=== PATIENT | female | born 1970 | race Caucasian/White ===

== ENCOUNTER → 2016-12-06 | Outpatient (CLI) | payer OTHER ==
[~2016-12-06] MED LIST: ASPI-390 PO; DOCU-94 PO; IRON TAB PO; NAPR1TAB9 PO; OXYC-57 PO
--- NOTE | 2016-12-06 11:53 | DIAGNOSTIC IMAGING REPORT ---
ULTRASOUND OF THE PELVIS CLINICAL HISTORY: Heavy menses. COMPARISON STUDY: No priors. TECHNIQUE: Real-time, grayscale, and color flow sonography of the pelvis is performed both transabdominally and endovaginally. Images are reviewed in the transverse and longitudinal planes. FINDINGS: Uterus: The uterus appears enlarged and heterogeneous in echotexture, measuring 14.8 x 6.8 x 6.5 cm. A hypoechoic soft tissue nodule is seen in the fundal region and distorts the individual stripe. This measures up to 2.2 cm and likely represents a submucosal fibroid. Additional small fibroids are suspected. Nabothian cysts are present in the cervix. Endometrium: The endometrium is normal in thickness measuring up to 0.7 cm. A well-circumscribed hyperechoic lesion is suggested within the endometrium paraspinal region. This measures up to 1.6 cm. No clear vascular stalk is identified. Ovaries: The ovaries are normal in size and morphology. The right ovary measures 3.1 x 1.4 x 2.0 cm and the left ovary measures 4.1 x 2.8 x 2.5 cm. Bilateral ovarian follicles are identified. Normal Doppler waveforms are shown within both ovaries. Pelvis: There is no free fluid in the cul-de-sac. No concerning adnexal lesion is seen. IMPRESSION: 1. The uterus is enlarged and heterogeneous, and likely infiltrated by numerous fibroids. 2. A 2.2 cm hypoechoic lesion distorts the endometrial stripe in the fundal region and likely represents a submucosal fibroid. 3. Question a well-circumscribed 1.6 cm echogenic lesion within the endometrium. An endometrial polyp is not excluded. 4. The ovaries are normal as visualized. Electronically signed by: Sesar Berrios M.D. 12/06/2016 11:51 AM Dictated Date/Time: 12/06/2016 11:47 AM
== END | disposition home or self-care (01) ==
LOC: C.ULTR 09:37
PROVIDERS: ATTEND Physician Assistant Medical
DX: N92.1 Excessive and frequent menstruation with irregular cycle (principal)

== ENCOUNTER → 2017-01-14 | Outpatient (CLI) | payer OTHER | END | disposition home or self-care (01) | LOC: C.PATHSPEC 15:57 | PROVIDERS: ATTEND Obstetrics & Gynecology | DX: N92.0 Excessive and frequent menstruation with regular cycle (principal); N85.8 Other specified noninflammatory disorders of uterus ==

== ENCOUNTER → 2017-01-19 | Outpatient (CLI) | payer OTHER ==
[2017-01-19 12:39] LABS: HEMATOCRIT 27.4 % (37-47); MEAN CELL VOLUME 71.9 fL (80-100); MEAN CORPUSCULAR HEMOGLOBIN 19.4 pg (25-34); MEAN PLATELET VOLUME 9.2 fL (7.4-10.4); PLATELET COUNT 373 K/uL (130-400); RED BLOOD COUNT 3.81 M/uL (4.2-5.4); WHITE BLOOD COUNT 4.44 K/uL (4.8-10.8)
[2017-01-19 12:49] LABS: BASO % 0.2 %; BASO ABS # 0.01 K/uL (0-0.2); COMPLETE YES; EOS % 3.2 %; GIANT PLATELETS 1+; HYPOCHROMIA PRESENT; IG% 0.2 %; LYMPH % 30.9 %; LYMPH ABS # 1.37 K/uL (1.2-3.4); MICROCYTOSIS PRESENT; MONO % 7.9 %; NEUT % 57.6 %; STOMATOCYTE 1+
== END | disposition home or self-care (01) ==
LOC: C.LAB1850 10:53
PROVIDERS: ATTEND Obstetrics & Gynecology
DX: N94.6 Dysmenorrhea, unspecified (principal); N92.0 Excessive and frequent menstruation with regular cycle

== ENCOUNTER 2017-02-18 05:30 | Observation (INO) | payer OTHER ==
[2017-02-09 13:03] VITALS: BMI 31.0
--- NOTE | 2017-02-09 13:25 | PAT Medication Instructions ---
Service Date Feb 09, 2017. Current Home Medication List Rdxghax-Xyrdtmcrbyktq-Gqigdefl (Excedrin Migraine), 2 TAB PO PRN Docusate Sodium (Colace), 1 CAP PO BID Naproxen (Aleve), 440 MG PO PRN [Iron Tab], 65 MG PO TID Medication Instructions For Your Scheduled Surgery - Hold the following medications 1 week prior to surgery per surgeon's instructions: Emfkluo-Zvppmiqufmtsm-Agqsqcur (Excedrin Migraine), 2 TAB PO PRN Naproxen (Aleve), 440 MG PO PRN - Hold the following medications the morning of surgery: Docusate Sodium (Colace), 1 CAP PO BID [Iron Tab], 65 MG PO TID - Take the following medications as scheduled the night before surgery: Docusate Sodium (Colace), 1 CAP PO BID [Iron Tab], 65 MG PO TID Nothing to eat or drink after midnight If you have any questions please call us at [phone] or [phone] or [phone]
[2017-02-09 13:39] LABS: BASO % 0.4 %; BASO ABS # 0.02 K/uL (0-0.2); EOS % 2.4 %; HEMATOCRIT 39.2 % (37-47); LYMPH % 16.1 %; LYMPH ABS # 0.82 K/uL (1.2-3.4); MEAN CELL VOLUME 87.5 fL (80-100); MEAN CORPUSCULAR HEMOGLOBIN 26.3 pg (25-34); MEAN CORPUSCULAR HGB CONC 30.1 g/dl (32-36); MEAN PLATELET VOLUME 9.5 fL (7.4-10.4); MONO % 11.2 %; NEUT % 69.9 %; PLATELET COUNT 333 K/uL (130-400); RED BLOOD COUNT 4.48 M/uL (4.2-5.4); WHITE BLOOD COUNT 5.08 K/uL (4.8-10.8)
[2017-02-09 14:30] LABS: ANISOCYTOSIS PRESENT; COMPLETE YES; MICROCYTOSIS PRESENT
[~2017-02-18] VITALS: Ht 157.5 cm; Wt 76.6 kg
[2017-02-18] VITALS (7 sets, daily range): BP systolic 108–118; BP diastolic 59–71; PULSE 65–90; TEMP 36.4–36.9; O2SAT 96–99; Ht 157.5 cm; Wt 76.6 kg
[~2017-02-18 05:30] MED LIST changes: -OXYC-57 PO
[2017-02-18] MEDS: LACTATED RINGER'S 1000ML 1,000 ML IV SCH ×2 (06:00→12:53)
[2017-02-18] MEDS ORDERED: CEFAZOLIN 2000 MG/60 ML D5W 50 ML IV SCH (06:00)
[2017-02-18] MEDS ORDERED: LACTATED RINGER'S 1000ML 1,000 ML IV SCH ×2 (06:00→09:28)
[2017-02-18] MEDS ORDERED: METHYLENE BLUE 0.5% 10 ML VIAL ONE (06:59)
[2017-02-18] MEDS ORDERED: BUPIVACAINE 0.5 % 5 MG/1 ML MPF 30ML VIAL ONE (06:59)
[2017-02-18] MEDS ORDERED: KETAMINE HCL INJ 50 MG/ML 10 ML VIAL ONE (07:02)
[2017-02-18] MEDS ORDERED: HYDROmorphone INJ 2 MG/ML SYR/VIAL ONE (07:02)
[2017-02-18] MEDS ORDERED: MIDAZOLAM HCL 1 MG/ML 2ML VIAL ONE (07:02)
[2017-02-18] MEDS ORDERED: FENTANYL CITRATE INJ 50 MCG/1 ML 2 ML VIAL ONE ×2 (07:02→08:00)
--- NOTE | 2017-02-18 07:24 | History & Physical Bridge Note ---
H&P Re-Evaluation Bridge Note: I have examined the patient, reviewed the History & Physical and in the interval since the performance of the History & Physical I have noted the following changes of clinical significance: No changes noted
[2017-02-18] MEDS ORDERED: ATROPINE SULFATE 0.1 MG/ML 5ML SYR IV PRN (07:30)
[2017-02-18] MEDS ORDERED: ONDANSETRON INJ 2 MG/ML 2 ML VIAL IV PRN ×2 (07:30→09:30)
[2017-02-18] MEDS ORDERED: HYDROmorphone INJ 1 MG/ML SYR IV PRN (07:30)
[2017-02-18] MEDS ORDERED: EpHEDrine SULFATE INJ 50 MG/ML AMP IV PRN (07:30)
[2017-02-18] MEDS ORDERED: DiphenhydrAMINE HCL 50 MG/ML VIAL ONE (08:26)
[2017-02-18] MEDS ORDERED: LIDOCAINE HCL 2% 2 ML VIAL (20MG/ML) ONE (08:26)
[2017-02-18] MEDS ORDERED: DEXAMETHASONE SOD INJ 4 MG/ML VIAL ONE (08:26)
[2017-02-18] MEDS ORDERED: PROPOFOL IV EMULSION 10 MG/ML 20 ML VIAL IV ONE (08:26)
[2017-02-18] MEDS ORDERED: ONDANSETRON INJ 2 MG/ML 2 ML VIAL ONE (08:26)
[2017-02-18] MEDS ORDERED: ROCURONIUM BROMIDE 10 MG/ML 5 ML VIAL ONE (08:26)
[2017-02-18] MEDS ORDERED: NEOSTIGMINE METHYLSULFATE 5 MG/5 ML SYR ONE (08:26)
[2017-02-18] MEDS ORDERED: GLYCOPYRROLATE INJ 0.2 MG/ML VIAL ONE (08:26)
[2017-02-18] MEDS ORDERED: METOCLOPRAMIDE HCL INJ 5 MG/ML 2 ML VIAL ONE (08:26)
[2017-02-18] MEDS ORDERED: LARYING-O-JET KIT (LTA) ONE ×2 (08:26)
[2017-02-18] MEDS ORDERED: SIMETHICONE 80 MG CHEW PO PRN (09:30)
[2017-02-18] MEDS ORDERED: OXYCODONE/ACETAMINOPHEN 5-325 TAB PO PRN ×2 (09:30)
[2017-02-18] MEDS ORDERED: IBUPROFEN 600 MG TAB PO PRN (09:30)
[2017-02-18] MEDS ORDERED: KETOROLAC TROMETHAMINE 30 MG/ML VIAL IV. PRN (09:30)
[2017-02-18] MEDS ORDERED: ACETAMINOPHEN 325 MG TAB PO PRN (09:30)
[2017-02-18] MEDS ORDERED: OXYC-57 PO (09:31)
--- NOTE | 2017-02-18 09:36 | Discharge Instructions ---
Discharge Instructions Date of Service Feb 18, 2017. Admission Reason for Admission: Menorrhagia, Leiomyoma Of Uterus Discharge Discharge Diagnosis / Problem: after surgery Discharge Goals Goal(s): Routine recovery after surgery Activity Recommendations Activity Limitations: as noted below . Instructions / Follow-Up Instructions / Follow-Up POST OPERATIVE: BOWEL FUNCTION/MEDICATIONS: 1. Constipation pain and discomfort are the most common complaints 5-7 days after surgery. Points 2-6 address the things that can help. 2. Chewing gum can help stimulate the gut and help improve digestion and motility. 3. Milk of Magnesia 1-2 times per day until return of bowel function. 4. Colace is a stool softener that helps. Taking this 2-3 times per day until bowel function returns to normal is highly recommended. 5. Dulcolax is a laxative that may be used if several days have passed without a bowel movement. Alternatively Miralax may be used daily instead. 6. Drink plenty of fluids as this will also reduce constipation. 7. Narcotic pain medications will be prescribed by your physician. They are safe to use and we encourage you to use them. If you are not allergic, ibuprofen will also be prescribed. Many patients will be able to transition off of the narcotic medications to ibuprofen by postoperative day 3. ACTIVITY RECOMMENDATIONS: 1. Get plenty of rest and listen to your body. If you are tired, take a nap. 2. You may shower, but do not take a tub bath until you see your doctor at the 2 week post operative visit. 3. Absolutely NO intercourse and nothing in the vagina until you are examined by your doctor at the 8 week visit. At that visit it will be determined when such activities can be resumed. This can range from 6-12 weeks after your surgery depending on healing time. 4. The main physical activity in the first week should be walking. By the second week you can slowly increase activity. There are no limits on walking up and down stairs. 5. Do not lift more than 5-10 lbs for 4 weeks. Remember the "one-handed rule", i.e. if you can lift something with only one hand it's likely okay. 6. Minimize per diem rn like vacuuming and exercising for 4 weeks. "Overdoing it" can lead to incisions not healing, pain and vaginal bleeding , so again, listen to your body. 7. Driving can be resumed when you feel able. Do not drive within 24 hours of taking a narcotic medication. EXPECTATIONS: 1. Vaginal spotting, bleeding and discharge are common after surgery. There may even be an odor to the discharge which is often related to sutures used in the vagina. If you experience heavy vaginal bleeding, call the office number day or night [phone]. 2. Bladder discomfort is common after surgery from the catheter. This usually resolves in 1-2 weeks. 3. By the end of the 3rd or 4th week you should be feeling much better. It may take up to 6 weeks for your energy levels to return to normal. 4. Narcotic medications have side effects such as: dizziness, headache, nausea and/or vomiting. If you suspect your pain medication is causing problems, call our office and we may be able to prescribe an alternate medication. 5. The skin incisions are often covered with a liquid bandage. This will gradually peel off over time. CALL THE OFFICE IF YOU HAVE ANY OF THE FOLLOWIN. Temperature of 101 degrees or higher. 2. Severe abdominal or pelvic pain not relieved by pain medication. 3. Persistent nausea or vomiting. 4. Increased pain with urination or difficulty urinating. 5. Bright red bleeding that soaks more than 1 pad per hour. CONTACT PHONE NUMBERS: Main Office: [phone] Surgical Nurse: [phone] extension [phone] FOLLOW-UP: Post-Operative Appointments: * Individual instructions will have been given about the timing of your first examination, but this is usually at the end of the second week home. * You will need to call the office at soon after discharge to make the appointment for your post-op check-up if it has not already been scheduled. * Additional information regarding activity, sexual intercourse and when to return to work will be given at this appointment. WE WISH YOU A SPEEDY RECOVERY! Current Hospital Diet Patient's current hospital diet: Discharge Diet Recommended Diet: Regular Diet Procedures Procedures Performed: Robotic Assisted Total Laparoscopic Hysterectomy bilateral salpingectomy; cystoscopy Pending Studies Studies pending at discharge: yes List of pending studies: pathology Medical Emergencies . Who to Call and When: Medical Emergencies: If at any time you feel your situation is an emergency, please call 911 immediately. . Non-Emergent Contact Non-Emergency issues call your: Mixer Tender . . "Provider Documentation" section prepared by Daiana Acosta. . VTE Core Measure Inpt VTE Proph given/why not?: Treatment not indicated [place] Drug Monitoring Program Search Results: patient reviewed within database, no issues identified
--- NOTE | 2017-02-18 09:42 | [facility] Post Operative Brief Note ---
Immediate Operative Summary Operative Date Feb 18, 2017. Pre-Operative Diagnosis Abnormal uterine bleeding and dysmennorhea, fibroid uterus, anemia Post-Operative Diagnosis same Procedure(s) Performed Robotic Assisted Total Laparoscopic Hysterectomy, bilateral salpingectomies; cystoscopy Surgeon Dr. Acosta Metal Solderer Surgeon(s) Dr. Isaac Estimated Blood Loss 20ml Findings uterus bulky about 14 wks size. nl tubes and ovaries bilaterally. liver edge obscured by transverse colon. cystoscopy with normal bladder filling and nl ureteral jets. Fluids (cc crystalloids) 1500 Specimens A: Cervix, uterus and bilateral fallopian tubes Drains diaz Anesthesia general Complication(s) None Disposition Recovery Room / PACU
[2017-02-18] MEDS: FENTANYL CITRATE INJ 50 MCG/1 ML 2 ML VIAL IV PRN ×2 (10:04→10:12)
--- NOTE | 2017-02-18 10:06 | [facility] Operative Report ---
Operative Report Operative Date Feb 18, 2017. Pre-Operative Diagnosis Abnormal uterine bleeding,dysmennorhea, fibroid uterus, anemia Post-Operative Diagnosis same Procedure(s) Performed Total laparoscopic hysterectomy, bilateral salpingectomies, cystoscopy, robotic- assisted Surgeon Dr. Acosta Medical Sales Consultant Surgeon(s) Dr. Isaac Estimated Blood Loss 20ml Findings Uterus 14 weeks size, normal ovaries and tubes bilaterally, liver edge obscured by transverse colon, cystoscopy findings with normal bladder filling and normal ureteral jets. Fluids 1500 Specimens A: Cervix, uterus and bilateral fallopian tubes Drains diaz Anesthesia general Complication(s) None Disposition Recovery Room / PACU Indications 46yo patient who is done her childbearing with symptomatic fibroid uterus and aub to anemia who desires definitive surgical therapy. She has 14 week size uterus with fibroids on ultrasound and normal ovaries suspected. She would like to leave her ovaries in situ if normal and is aware of recommendation to remove bilateral fallopian tubes to decrease risk of future cancer. Description of Procedure Patient was taken into the operating room and identified. After adequate general anesthesia was obtained she was placed in the dorsolithotomy position and prepped and draped in usual sterile fashion. Attention was turned to the patient's vagina where a weighted speculum and anterior retractor were placed to visualize the cervix. Cervix was grasped on its anterior lip with an Allis clamp and sequentially dilated using Hegar dilators to 23. Uterus is sounded to approximately 10 cm. The bladder had been drained using a ongoing Diaz catheter. The V care uterine manipulator was placed through cervical os into the uterine cavity and the balloon was inflated. A single interrupted suture of 0 Vicryl had already been placed at the 3 o'clock position and tied down. This was then connected to the V care And tied down. The stabilizing cup was then placed. Vaginal instruments were then removed. Attention was turned to the patient's abdomen where a supraumbilical skin incision was made with the scalpel. The Veress needle was placed intraperitoneally with an opening pressure 4 mmHg. A CO2 pneumoperitoneum was created. The optical trocar 12 mm was placed under direct visualization into the peritoneal cavity. The patient was placed in steep Trendelenburg. The abdomen and pelvis were inspected with the findings noted as noted above. 2 da Lisha trocar sites were created left and right of the midline by first creating skin incisions and then placing under direct visualization the da Lisha trochars. Using a blunt probe the bowel was teased away from the planned operative field. At this point the laparoscope was removed and da Lisha robot was brought to the patient's bedside. The appropriate instrument arms were attached the appropriate trochars. The camera was introduced. The monopolar aniceto were placed via instrument #1 and the fenestrated bipolar was brought to instrument arm #2. The surgeon then went to the console. The uterus was manipulated to visualize the right adnexal structures. The ureter was seen coursing well below the planned operative sites on the right. The fimbriated end of fallopian tube was elevated. It was transected all the way to the level of the cornea. The utero-ovarian ligament was then coagulated and transected in a sequential fashion. The round ligament was elevated and coagulated and transected. The remaining utero-ovarian ligament attachments were transected and cut and the anterior peritoneal reflection was developed to create the bladder flap. The uterine artery pedicle on the right side was skeletonized. It was coagulated using the bipolar instrument in a sequential fashion. Attention was then turned to the left adnexal structures. The fallopian tube was transected to the cornu and the utero -ovarian attachments were further taken down on the left side. The ureter had also been seen coursing well below the planned operative sites on this side. The reflections of the peritoneum anteriorly and posteriorly were opened up into and the bladder flap was begun from the left side and then across the midline. The bladder was pushed well away from the planned operative sites. The uterine artery pedicle was skeletonized on this side. It was coagulated and transected in a sequential fashion the cardinal ligament attachments were also coagulated and transected. Attention was returned to the right uterine artery pedicle which was then further transected and coagulated as well as the cardinal ligament attachments. This completely cleared the V care cup and with pressure the cervix was carved from the upper vagina using the monopolar aniceto. The uterus was completely freed up and then removed vaginally. Sponges placed in the vagina to allow for maintenance of the pneumoperitoneum. Following a short arm was replaced with a large needle driver medic. The 20V LOC 90 suture was passed vaginally and the cuff was then closed in the routine fashion using the suture material. After 2 back stitches the suture material was then cut and removed from the abdomen. This was achieved by removing the large needle driver medic and undocking the instrument arm #1 to allow for the supply chain assistant to both cut suture material and remove the needle. All operative sites were inspected and noted to be hemostatic. The pelvis was irrigated. A cystoscopy then took place after IV methylene blue had been administered. There was normal bladder filling and normal ureteral jets seen. At this point the robot was completely undocked and moved away from the patient's bedside. The CO2 gas was allowed to escape from the patient's abdomen and all trochars removed. She was put in flat positioning. The supraumbilical skin incisions fascia was reapproximated with single interrupted suture of 0 Vicryl. All skin incisions were closed in a subcuticular fashion using 4-0 Vicryl. The incisions were all injected with Marcaine totaling 12cc. Dermabond was applied. The sponges are removed from the vagina. After the cystoscopy a new Diaz catheter had been placed. At this point the procedure was terminated. All sponge lap and needle counts were correct 2. The patient was returned to the supine position and awoken from anesthesia and transferred to recovery room in stable condition. I attest to the content of the Intraoperative Record and any orders documented therein. Any exceptions are noted below.
--- NOTE | 2017-02-18 10:22 | Anesthesiology Progress Note ---
Anesthesia Post Op Note Date & Time Feb 18, 2017 at 10:22 Vital Signs Pain Intensity: 3.0 Vital Signs Past 12 Hours Date Time Temp Pulse Resp B/P (MAP) Pulse Ox O2 Delivery O2 Flow Rate FiO2 02/18/17 10:10 67 12 119/68 95 Room Air 02/18/17 10:00 67 12 115/73 97 Room Air 02/18/17 09:50 75 12 111/68 100 Oxymask 10 02/18/17 09:40 68 12 111/69 100 Oxymask 10 02/18/17 09:34 36 68 12 108/61 100 Oxymask 10 02/18/17 06:02 36.6 68 16 118/59 (78) 99 Room Air Notes Mental Status: alert / awake / arousable, participated in evaluation Pt Amnestic to Procedure: Yes Nausea / Vomiting: adequately controlled Pain: adequately controlled Airway Patency, RR, SpO2: stable & adequate BP & HR: stable & adequate Hydration State: stable & adequate Anesthetic Complications: no major complications apparent
[2017-02-18] MEDS ORDERED: SODIUM CHLORIDE 0.9% INJ 10 ML VIAL ONE (10:50)
[2017-02-18] MEDS ORDERED: IV FLUIDS COMPLETED PRN (11:30)
[2017-02-18] MEDS ORDERED: NURSING VERBAL MED ORDER ONE (13:15)
--- NOTE | 2017-02-23 13:12 | Discharge Summary ---
Discharge Summary Date of Service February 18, 2017, date of discharge January Admission diagnosis: 1. Abnormal uterine bleeding 2. Dysmenorrhea 3. Symptomatic Fibroid Uterus 4. Anemia Discharge diagnosis: the same Procedures: 1. Total laparoscopic hysterectomy. 2. Bilateral salpingectomies 3. cystoscopy 4. robotic assistance Brief history and hospital course: 46yo who completed childbearing with above diagnoses who desired definitive surgical management. Refer to my original history and physical for more details. She underwent the above stated procedure without incident. She recovered well and was sent home later the same day. She was given instructions and was to call for planned 2 week followup. She was given pain medicine prescriptions.
== END 2017-02-18 14:39 | disposition home or self-care (01) ==
LOC: C.ACU 05:30 → C.MSW 05:45 → ENRESERV 10:19
PROVIDERS: ADMIT Obstetrics & Gynecology; ATTEND Obstetrics & Gynecology
DX: N94.6 Dysmenorrhea, unspecified (principal); D25.1 Intramural leiomyoma of uterus; D25.0 Submucous leiomyoma of uterus; D25.2 Subserosal leiomyoma of uterus; D50.9 Iron deficiency anemia, unspecified; F17.200 Nicotine dependence, unspecified, uncomplicated; Z83.3 Family history of diabetes mellitus; Z82.49 Family history of ischemic heart disease and other diseases of the circulatory system; Z84.1 Family history of disorders of kidney and ureter
CPT/HCPCS: 58573; S2900

== ENCOUNTER 2022-09-06 16:00 | Observation (INO) ==
[2022-09-06] MEDS ORDERED: ACETAMINOPHEN 1,000 MG/100 ML VIAL IV STA (16:24)
[2022-09-06] MEDS ORDERED: PROCHLORPERAZINE 1 ML IV ONE (16:24)
[2022-09-06] MEDS ORDERED: diphenhydrAMINE 50 MG/ML VIAL IV STA ×2 (16:24→20:21)
[2022-09-06] MEDS ORDERED: SODIUM CHLORIDE 0.9% 1000ML 1,000 ML IV ONE (16:24)
[2022-09-06] MEDS ORDERED: dexAMETHasone**PF** 10 MG/ML VIAL IV ONE (16:24)
--- NOTE | 2022-09-06 16:47 | Emergency Department Note ---
Impression & Plan Hypertensive urgency, Intractable tension-type headache, Right internal carotid artery aneurysm, Aneurysm of right vertebral artery ED Provider Note NAME: SHABANA OBANDO AGE: 52 SEX: F ARRIVES VIA: Walk-In INFORMANT: Patient ED PROVIDER(S): Giuseppe Butler MD CHIEF COMPLAINT: Headache, neck pain PLAN: Disposition: Admit MEDICAL DECISION MAKING: The patient is a pleasant 52-year-old woman with a past medical history of remote migraines in childhood, hypertension for which she is admittedly noncompliant with her medications for the past couple of months who presents to the emergency department for evaluation of ongoing right posterior headache and neck pain that she initially noticed when she woke up thinking she slept on her neck wrong. However the pain is only continue to worsen since it started and has been unbearable today. She reports she has been taking ibuprofen with minimal relief. She reports some intermittent nausea when she is walking around. She denies any particular room spinning. She denies any recent fevers, chills, cough, congestion, urinary symptoms. On arrival patient is no acute distress, afebrile with blood pressure 180s/120s in setting of her discomfort. She has mild discomfort of the right cervical paraspinal muscles extending into the occipital scalp. There are no overlying skin changes. TMs are clear bilaterally. There are no bruits. EOMI. No nystamgus. PEARRL.5/5 strength and SILT x 4 extremities. Cerebellar function intact including [id number], alternating palms, [id number]. EKG without overt acute ischemia. CXR negative for acute cardiopulmonary process. WBC and platelets within normal limits. H/H 16.5/46.6 consistent with patient's clinically dry appearance however no prior values available for comparison. Chemistry without metabolic acidosis. Electrolytes and LFTs unremarkable. High-sensitivity troponin 3.8, within normal limits. Lipase not elevated. Covid-19 PCR negative. Influenza and RSV PCR negative. CT of the head and CTA of the head and neck was performed. 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 These findings are suspected to be incidental given the patient's exam with reproducible paraspinal muscle tenderness suggestive of tension headache and neck spasm. The patient did have initial improvement in symptoms and blood pressure following initial treatment for tension/migraine with IV fluid hydration, dexamethasone, APAP, diphenhydramine and Compazine. However, symptoms did return and so was additionally treated with IV magnesium, Reglan, diphenhydramine and Valium. However, given the patient's refractory symptoms in the setting of her hypertensive urgency Case was reviewed with vascular surgery at [facility] as we did not have vascular surgery on-call this evening. Case was discussed with Dr. Blankenship, [facility] vascular surgery. Appreciate consultation and recommendations. Agrees that findings are not related to the patient's current symptoms at this time. However does agree that findings are significant and that the patient sh ould be seen in their clinic upon discharge for regular monitoring. Agrees with admission here for optimal blood pressure control. Recommendations and plan for admission reviewed the patient and her . They were in agreement. Patient was given labetalol 10 mg x 2 with subsequent improvement in blood pressure to 160s/90s. Case was discussed with Denver Miller [facility] hospitalist who will evaluate the patient for admission. Triage Nursing notes reviewed and agree them. Prior medical records reviewed Vital Signs: reviewed Differential diagnosis: Migraine headache, meningitis, sinusitis, CO exposure, ICH, SAH, infection, tumor, headache, sinus thrombosis, arterial dissection, as well as other pathologies. ER treatment provided: See below. Diagnostics interpreted by me: ECG: Normal sinus rhythm, 79 bpm, no ectopy, no overt ST elevation or depression, QTC 497, QRS 100. Cardiac Monitoring: An order for continuous cardiac monitoring was placed and demonstrated Normal sinus rhythm, 79 bpm, no ectopy. Laboratory studies: See below Imaging studies: See below Consultation(s): Dr. Blankenship, [facility] Vascular surgery. Case was discussed with [facility] who will evaluate the patient for admission. HPI: The patient is a pleasant 52-year-old woman with a past medical history of remote migraines in childhood, hypertension for which she is admittedly noncompliant with her medications for the past couple of months who presents to the emergency department for evaluation of ongoing right posterior headache and neck pain that she initially noticed when she woke up thinking she slept on her neck wrong. However the pain is only continue to worsen since it started and has been unbearable today. She reports she has been taking ibuprofen with minimal relief. She reports some intermittent nausea when she is walking around. She denies any particular room spinning. She denies any recent fevers, chills, cough, congestion, urinary symptoms. ROS: See above HPI for pertinent positives & negatives. A total of 10 systems reviewed and were otherwise negative. VITALS:See Below PHYSICAL EXAMINATION: GENERAL: Awake, alert, uncomfortable-appearing, in no distress HENT: Normocephalic, atraumatic. Oropharynx with dry mucous membranes and otherwise unremarkable. EYES: Normal conjunctiva. Sclera non-icteric. EOMI. No nystamgus. PEARRL. NECK: Supple. No nuchal rigidity. FROM. No JVD. RESPIRATORY: Clear to auscultation. CARDIAC: Regular rate, normal rhythm. Extremities warm and well perfused. Pulses equal. ABDOMEN: Soft, non-distended. No tenderness to palpation. No rebound or guarding. No masses. RECTAL: Deferred. MUSCULOSKELETAL: Chest examination reveals no tenderness. The back is symmetrical on inspection without obvious abnormality. There is no CVA tenderness to palpation. No joint edema. LOWER EXTREMITIES: Calves are equal size bilaterally and non-tender. No edema. No discoloration. NEURO: Mild discomfort of the right cervical paraspinal muscles extending into the occipital scalp. There are no overlying skin changes. TMs are clear bilaterally. There are no bruits. EOMI. No nystamgus. PEARRL.5/5 strength and SILT x 4 extremities. Cerebellar function intact including [id number], alte rnating palms, [id number]. SKIN: No rash or jaundice noted. ED COURSE: Critical Care: I have personally spent greater than 45 minutes of critical care time in the direct management of this patient. This includes bedside care, interpretation of diagnostic studies, and testing, discussion with consultants, patient, and family members, and other required patient management activities. This 45 minutes is in excess of all separately billable procedures. Giuseppe Butler MD Past Med/Surg History Medical History Anxiety Hypertension Surgical History History of anesthesia reaction SLOW TO WAKE UP WITH HYSTERECTOMY History of hysterectomy [place] teeth removed Family History Grandfather (Maternal) Family history of diabetes mellitus Social History Smoking Status: Current every day smoker Second Hand Exposure: No; Hx Alcohol Use: Yes Alcohol type: beer Preferred Language: Vincentian Jackhammer Operator Required: No Beliefs That Will Affect Care: None Current Living Situation: Family Feels Safe at Home: Yes Assistive Devices: Glasses Allergies Allergies Allergy/AdvReac Type Severity Reaction Status Date / Time No Known Allergies Allergy Verified 09/06/22 22:57 Home Meds Home Medications Medication Instructions Recorded Confirmed No Known Home Medications 09/06/22 09/06/22 Results & Data (ED) Vital Signs Vital Signs - 24 hr 09/06/22 16:06 09/06/22 19:00 09/06/22 19:00 Temperature 36.3 C L Temperature Source Temporal Artery Scan Pulse Rate 87 Pulse Rate [Finger] 80 Pulse Rhythm Regular Pulse Rhythm [Finger] Regular Pulse Strength Normal Pulse Strength [Finger] Normal Respiratory Rate 20 18 Respiratory Effort / Characteristics Non-Labored Spontaneous Non-Labored Respiratory Depth Normal Normal Respiratory Pattern Regular Regular Blood Pressure 189/122 H Blood Pressure [Right Arm] 164/97 H Blood Pressure Mean 144 Blood Pressure Mean [Right Arm] 119 Blood Pressure Position Sitting Blood Pressure Position [Right Arm] Lying Pulse Oximetry 99 97 97 Oxygen Delivery Method Room Air Room Air Room Air Sepsis Recent Fever Within 48 Hours No Sepsis New/Unexplained Change in Mental Status No Sepsis Action Taken by Nursing No Action Required 09/06/22 21:00 09/06/22 22:00 09/06/22 22:50 Temperature Temperature Source Pulse Rate Pulse Rate [Finger] 89 66 75 Pulse Rhythm Pulse Rhythm [Finger] Regular Regular Regular Pulse Strength Pulse Strength [Finger] Normal Normal Normal Respiratory Rate 18 18 18 Respiratory Effort / Characteristics Non-Labored Non-Labored Non-Labored Respiratory Depth Normal Normal Normal Respiratory Pattern Regular Regular Regular Blood Pressure Blood Pressure [Right Arm] 180/91 H 185/108 H 177/109 H Blood Pressure Mean Blood Pressure Mean [Right Arm] 120 133 131 Blood Pressure Position Blood Pressure Position [Right Arm] Lying Lying Lying Pulse Oximetry 94 95 95 Oxygen Delivery Method Room Air Room Air Room Air Sepsis Recent Fever Within 48 Hours Sepsis New/Unexplained Change in Mental Status Sepsis Action Taken by Nursing 09/06/22 23:00 09/06/22 23:15 Temperature Temperature Source Pulse Rate Pulse Rate [Finger] 67 68 Pulse Rhythm Pulse Rhythm [Finger] Regular Regular Pulse Strength Pulse Strength [Finger] Normal Normal Respiratory Rate 18 18 Respiratory Effort / Characteristics Non-Labored Non-Labored Respiratory Depth Normal Normal Respiratory Pattern Regular Regular Blood Pressure Blood Pressure [Right Arm] 169/112 H 139/93 Blood Pressure Mean Blood Pressure Mean [Right Arm] 131 108 Blood Pressure Position Blood Pressure Position [Right Arm] Lying Lying Pulse Oximetry 95 96 Oxygen Delivery Method Room Air Room Air Sepsis Recent Fever Within 48 Hours Sepsis New/Unexplained Change in Mental Status Sepsis Action Taken by Nursing Laboratory Data Attestation: I reviewed the patient's lab results. 09/06/22 16:53 09/06/22 16:53 Lab Results 09/06/22 09/06/22 09/06/22 Range/Units 16:53 16:53 16:57 WBC 7.75 (4.8-10.8) K/ul RBC 4.90 (3.93-5.22) M/uL Hgb 16.5 H (12.0-16.0) g/dl Hct 46.6 H (34.1-44.9) % MCV 95.1 (80.0-100.0) fL MCH 33.7 (25.0-34.0) pg MCHC 35.4 (32.0-36.0) g/dL RDW Std Deviation 40.6 (36.4-46.3) fL RDW Coeff of Jayson 11.7 (11.5-14.5) % Plt Count 260 (130-400) K/uL MPV 9.6 (9.4-12.3) fL Immature Gran % (Auto) 0.3 % Neut % (Auto) 72.1 % Lymph % (Auto) 20.9 % [place] % (Auto) 5.5 % Eos % (Auto) 0.8 % Baso % (Auto) 0.4 % Neut # (Auto) 5.59 (1.4-6.5) K/uL Lymph # (Auto) 1.62 (1.2-3.4) K/uL [place] # (Auto) 0.43 (0.24-0.82) K/uL Eos # (Auto) 0.06 (0-0.50) K/uL Baso # (Auto) 0.03 (0-0.2) K/uL Immature Gran # (Auto) 0.02 (0.00-0.02) K/uL Sodium 139 (136-145) mmol/L Potassium 3.9 (3.5-5.1) mmol/L Chloride 107 (98-107) mmol/L Carbon Dioxide 25 (21-32) mmol/L Anion Gap 7 (3-11) BUN 10 (6-23) mg/dl Creatinine 0.52 L (0.6-1.2) mg/dl Est Cr Clr Drug Dosing 128.9 ml/min Est GFR ( Amer) 126.4 ml/min Est GFR (Non-Af Amer) 109.1 ml/min BUN/Creatinine Ratio 19.2 (10-20) Glucose 93 (70-99(Fasting)) mg/dl Calcium 9.4 (8.5-10.1) mg/dl Phosphorus 3.3 (2.5-4.9) mg/dl Magnesium 2.2 (1.7-2.4) mg/dl Total Bilirubin 0.5 (0.2-1.0) mg/dl AST 31 (13-39) U/L ALT 26 (7-52) U/L Alkaline Phosphatase 64 (34-104) U/L Troponin I High Sens 3.8 (0-14) pg/ml Total Protein 7.3 (6.0-8.3) gm/dl Albumin 4.5 (3.4-5.0) gm/dl Globulin 2.8 (2.5-4.0) gm/dl Albumin/Globulin Ratio 1.6 (0.9-2) Lipase 8 L (11-82) U/L SARS-CoV-2 (PCR) NEGATIVE (Negative) Influenza Type A (PCR) Negative (Neg) Influenza Type B (PCR) Negative (Neg) RSV (RT-PCR) Negative (Neg) Administered Medications Multivitamins 10 ml/ Thiamine HCl 100 mg/ Folic Acid 1 mg/Sodium Chloride 1,011.2 mls @ 60 mls/hr IV .[id number] ONE Stop: 09/07/22 17:02 Last Admin: 09/07/22 00:54 Dose: 60 mls/hr Documented By: LRS Lorazepam (Lorazepam 0.5 Mg Tab) 0.5 mg PO TID PRN PRN Reason: Anxiety Stop: 10/07/22 00:17 Last Admin: 09/07/22 00:54 Dose: 0.5 mg Documented By: LIZZ Discontinued Medications Dexamethasone Sodium Phosphate (DexamethasonePf 10 Mg/Ml Vial) 10 mg IV NOW ONE Stop: 09/06/22 16:25 Last Admin: 09/06/22 17:08 Dose: 10 mg Documented By: [id number] Diazepam (Diazepam 2 Mg Tablet) 2 mg PO NOW ONE Stop: 09/06/22 20:23 Last Admin: 09/06/22 20:31 Dose: 2 mg Documented By: LIZZ Diphenhydramine HCl (Diphenhydramine 50 Mg/Ml Vial) 12.5 mg IV NOW STA Stop: 09/06/22 16:25 Last Admin: 09/06/22 17:07 Dose: 12.5 mg Documented By: [id number] Diphenhydramine HCl (Diphenhydramine 50 Mg/Ml Vial) 25 mg IV NOW STA Stop: 09/06/22 20:22 Last Admin: 09/06/22 20:31 Dose: 25 mg Documented By: LIZZ Sodium Chloride (Nss 1000ml) 1,000 mls @ 999 mls/hr IV .[id number] ONE Stop: 09/06/22 17:24 Last Infusion: 09/06/22 18:47 Dose: 0 mls/hr Documented By: [id number] Admin: 09/06/22 17:07 Dose: 999 mls/hr Documented By: [id number] Acetaminophen (Ofirmev) 1,000 mg in 100 mls @ 400 mls/hr IV NOW STA Stop: 09/06/22 16:38 Last Infusion: 09/06/22 18:33 Dose: 0 mls/hr Documented By: [id number] Admin: 09/06/22 17:07 Dose: 400 mls/hr Documented By: [id number] Prochlorperazine (Compazine) 1 mls @ 1 mls/min IV ONE ONE Stop: 09/06/22 16:25 Last Admin: 09/06/22 17:08 Dose: 1 mls/min Documented By: [id number] Magnesium Sulfate/Dextrose (Magnesium Sulfate / D5w) 1 gm in 100 mls @ 100 mls/hr IV NOW STA Stop: 09/06/22 21:20 Last Infusion: 09/06/22 21:31 Dose: 0 mls/hr Documented By: Admin: 09/06/22 20:30 Dose: 100 mls/hr Documented By: LIZZ Ioversol (Optiray 320 500ml) 114 ml IV ONCE ONE Stop: 09/06/22 18:59 Last Admin: 09/06/22 18:58 Dose: 114 ml Documented By: [email or web address] Labetalol HCl (Labetalol Hcl Iv 5 Mg/Ml 20ml) 10 mg IV NOW STA Stop: 09/06/22 22:11 Last Admin: 09/06/22 22:20 Dose: 10 mg Documented By: LIZZ Co-signed By: ROSELINE Labetalol HCl (Labetalol Hcl Iv 5 Mg/Ml 20ml) 10 mg IV NOW STA Stop: 09/06/22 22:56 Last Admin: 09/07/22 00:52 Dose: 10 mg Documented By: LIZZ Co-signed By: LE Lisinopril (Lisinopril 5 Mg Tab) 5 mg PO NOW STA Stop: 09/06/22 23:22 Last Admin: 09/07/22 00:54 Dose: 5 mg Documented By: LIZZ Metoclopramide HCl (Metoclopramide Hcl Inj 5 Mg/Ml 2 Ml Vial) 10 mg IV NOW STA Stop: 09/06/22 20:22 Last Admin: 09/06/22 20:31 Dose: 10 mg Documented By: LIZZ Imaging Data Radiologist's Impression: Chest X-Ray 09/06/22 16:23 XR chest 1V portable CLINICAL HISTORY: Chest pain, nonspecific TECHNIQUE: Single frontal radiograph of the chest was obtained. Comparison: None available at the time of this dictation. FINDINGS: No lines and tubes are seen. The cardiomediastinal silhouette is normal. The lungs are clear. No evidence of pleural effusion or pneumothorax. IMPRESSION: No acute chest disease. ACT 112: Negative or not required by law. Electronically signed by: Ck Cole M.D. 09/06/2022 5:[address] 09/06/22 16:[address], HEAD & NECK CTA HISTORY: posterior headache, neck pain, HTN TECHNIQUE: Multiaxial CT images of the head were performed both before and after the intravenous administration of contrast to evaluate the major cerebral vessels. Multiaxial CT images of the neck were also performed following the intravenous administration of contrast to evaluate the major cervical vessels. Maximum intensity projection images were also obtained. A dose lowering technique was utilized adhering to the principles of ALARA. COMPARISON: None. FINDINGS: NONCONTRAST HEAD CT: There is no mass, hematoma, midline shift, or acute infarct. HEAD CTA: Visualized intracranial internal carotid arteries, distal vertebral arteries, and basilar artery are widely patent. There is no significant stenosis, occlusion, or aneurysm seen within the bilateral ACAs, MCAs, or loading machine tool setter. The major dural venous sinuses are patent. NECK CTA: The aortic arch and proximal great vessels are widely patent. There is no significant stenosis, occlusion, or dissection identified within the bilateral common carotid, internal carotid, or vertebral arteries. There is a 3 mm focal saccular aneurysm within the mid right cervical internal carotid artery on image 231. There is also focal fusiform aneurysmal dilatation within the distal right cervical internal carotid artery on image 266 measuring 6.5 mm. There is a 2 mm focal saccular aneurysm within the mid to distal right cervical vertebral artery on image 223. No acute fractures within the cervical spine. IMPRESSION: 1. No acute intracranial abnormality. 2. No significant stenosis, occlusion, or aneurysm within the [place] of [place]. 3. No significant stenosis, occlusion, or dissection identified within the carotid or vertebral arteries. 3. Small aneurysms seen within the right cervical internal carotid artery and right vertebral artery as described above. ACT 112: Negative or not required by law. Electronically signed by: Noe Baron M.D. 09/06/2022 7:20 PM Head CTA 09/06/22 16:[address], HEAD & NECK CTA HISTORY: posterior headache, neck pain, HTN TECHNIQUE: Multiaxial CT images of the head were performed both before and after the intravenous administration of contrast to evaluate the major cerebral vessels. Multiaxial CT images of the neck were also performed following the intravenous administration of contrast to evaluate the major cervical vessels. Maximum intensity projection images were also obtained. A dose lowering technique was utilized adhering to the principles of ALARA. COMPARISON: None. FINDINGS: NONCONTRAST HEAD CT: There is no mass, hematoma, midline shift, or acute infarct. HEAD CTA: Visualized intracranial internal carotid arteries, distal vertebral arteries, and basilar artery are widely patent. There is no significant stenosis, occlusion, or aneurysm seen within the bilateral ACAs, MCAs, or loading machine tool setter. The major dural venous sinuses are patent. NECK CTA: The aortic arch and proximal great vessels are widely patent. There is no significant stenosis, occlusion, or dissection identified within the bilateral common carotid, internal carotid, or vertebral arteries. There is a 3 mm focal saccular aneurysm within the mid right cervical internal carotid artery on image 231. There is also focal fusiform aneurysmal dilatation within the distal right cervical internal carotid artery on image 266 measuring 6.5 mm. There is a 2 mm focal saccular aneurysm within the mid to distal right cervical vertebral artery on image 223. No acute fractures within the cervical spine. IMPRESSION: 1. No acute intracranial abnormality. 2. No significant stenosis, occlusion, or aneurysm within the [place] of [place]. 3. No significant stenosis, occlusion, or dissection identified within the carotid or vertebral arteries. 3. Small aneurysms seen within the right cervical internal carotid artery and right vertebral artery as described above. ACT 112: Negative or not required by law. Electronically signed by: Noe Baron M.D. 09/06/2022 7:20 PM Neck CTA 09/06/22 16:[address], HEAD & NECK CTA HISTORY: posterior headache, neck pain, HTN TECHNIQUE: Multiaxial CT images of the head were performed both before and after the intravenous administration of contrast to evaluate the major cerebral vessels. Multiaxial CT images of the neck were also performed following the intravenous administration of contrast to evaluate the major cervical vessels. Maximum intensity projection images were also obtained. A dose lowering technique was utilized adhering to the principles of ALARA. COMPARISON: None. FINDINGS: NONCONTRAST HEAD CT: There is no mass, hematoma, midline shift, or acute infarct. HEAD CTA: Visualized intracranial internal carotid arteries, distal vertebral arteries, and basilar artery are widely patent. There is no significant stenosis, occlusion, or aneurysm seen within the bilateral ACAs, MCAs, or loading machine tool setter. The major dural venous sinuses are patent. NECK CTA: The aortic arch and proximal great vessels are widely patent. There is no significant stenosis, occlusion, or dissection identified within the bilateral common carotid, internal carotid, or vertebral arteries. There is a 3 mm focal saccular aneurysm within the mid right cervical internal carotid artery on image 231. There is also focal fusiform aneurysmal dilatation within the distal right cervical internal carotid artery on image 266 measuring 6.5 mm. There is a 2 mm focal saccular aneurysm within the mid to distal right cervical vertebral artery on image 223. No acute fractures within the cervical spine. IMPRESSION: 1. No acute intracranial abnormality. 2. No significant stenosis, occlusion, or aneurysm within the [place] of [place]. 3. No significant stenosis, occlusion, or dissection identified within the c arotid or vertebral arteries. 3. Small aneurysms seen within the right cervical internal carotid artery and right vertebral artery as described above. ACT 112: Negative or not required by law. Electronically signed by: Noe Baron M.D. 09/06/2022 7:20 PM Discharge Plan Visit Data Chief Complaint: Headache Stated Complaint: HEAD HURTS 5 DAYS, NECK PAIN ED Provider: Giuseppe Butler Discharge Problem: Hypertensive urgency, Intractable tension-type headache, Right internal carotid artery aneurysm, Aneurysm of right vertebral artery Patient Disposition: Admitted As Inpatient Discharge Instructions Interventions: ED Discharge Assessment Last Done: 09/07/22 00:50
[2022-09-06 17:05] LABS: Basophils # (auto) 0.03 K/uL (0-0.2); Basophils % (auto) 0.4 %; Eosinophils # (auto) 0.06 K/uL (0-0.50); Eosinophils % (auto) 0.8 %; Hematocrit (blood only) 46.6 % (34.1-44.9); Hemoglobin 16.5 g/dl (12.0-16.0); Immature Granulocytes # (auto) 0.02 K/uL (0.00-0.02); Immature Granulocytes % (auto) 0.3 %; Lymphocytes # (auto) 1.62 K/uL (1.2-3.4); Lymphocytes % (auto) 20.9 %; Mean Corpuscular Hemoglobin 33.7 pg (25.0-34.0); Mean Corpuscular Hgb Conc 35.4 g/dL (32.0-36.0); Mean Corpuscular Volume 95.1 fL (80.0-100.0); Mean Platelet Volume 9.6 fL (9.4-12.3); Monocytes # (auto) 0.43 K/uL (0.24-0.82); Monocytes % (auto) 5.5 %; Neutrophils # (auto) 5.59 K/uL (1.4-6.5); Neutrophils % (auto) 72.1 %; Platelet Count 260 K/uL (130-400); RDW Coefficient of Variation 11.7 % (11.5-14.5); RDW Standard Deviation 40.6 fL (36.4-46.3); White Blood Count 7.75 K/ul (4.8-10.8)
--- NOTE | 2022-09-06 17:05 | XRay Report ---
XR chest 1V portable CLINICAL HISTORY: Chest pain, nonspecific TECHNIQUE: Single frontal radiograph of the chest was obtained. Comparison: None available at the time of this dictation. FINDINGS: No lines and tubes are seen. The cardiomediastinal silhouette is normal. The lungs are clear. No evid ence of pleural effusion or pneumothorax. IMPRESSION: No acute chest disease. ACT 112: Negative or not required by law. Electronically signed by: Ck Cole M.D. 09/06/2022 5:03 PM
[2022-09-06 17:31] LABS: Albumin Globulin Ratio 1.6 (0.9-2); Albumin Level 4.5 gm/dl (3.4-5.0); BUN Creatinine Ratio 19.2 (10-20); Bilirubin,Total 0.5 mg/dl (0.2-1.0); Calcium 9.4 mg/dl (8.5-10.1); Creatinine Clr Calc Pharmacy 128.9 ml/min; Est GFR (African American) 126.4 ml/min; Est GFR (Non-African American) 109.1 ml/min; Globulin 2.8 gm/dl (2.5-4.0); Magnesium 2.2 mg/dl (1.7-2.4); Phosphorus 3.3 mg/dl (2.5-4.9); Potassium 3.9 mmol/L (3.5-5.1); Total Protein 7.3 gm/dl (6.0-8.3)
[2022-09-06 17:33] LABS: Troponin I High Sensitivity 3.8 pg/ml (0-14)
[2022-09-06] MEDS ORDERED: OPTIRAY 320 500ml IV ONE (18:58)
[2022-09-06 19:15] LABS: Influenza A virus by PCR Negative (Neg); Influenza B virus by PCR Negative (Neg); RSV by PCR Negative (Neg); SARS CoV2 RNA(COVID-19) Ceph NEGATIVE (Negative)
--- NOTE | 2022-09-06 19:21 | CT Scan Report ---
NONCONTRAST HEAD CT, HEAD & NECK CTA HISTORY: posterior headache, neck pain, HTN TECHNIQUE: Multiaxial CT images of the head were performed both before and after the intravenous admi nistration of contrast to evaluate the major cerebral vessels. Multiaxial CT images of the neck were also performed following the intravenous administration of contrast to evaluate the major cervical ve ssels. Maximum intensity projection images were also obtained. A dose lowering technique was utilized adhering to the principles of ALARA. COMPARISON: None. FINDINGS: NONCONTRAST HEAD CT: There is no mass, hematoma, midline shift, or acute infarct. HEAD CTA: Visualized intracranial internal carotid arteries, distal vertebral arteries, and basilar a rtery are widely patent. There is no significant stenosis, occlusion, or aneurysm seen within the renny ateral ACAs, MCAs, or diamond grinder. The major dural venous sinuses are patent. NECK CTA: The aortic arch and proximal great vessels are widely patent. There is no significant sten osis, occlusion, or dissection identified within the bilateral common carotid, internal carotid, or v ertebral arteries. There is a 3 mm focal saccular aneurysm within the mid right cervical internal car otid artery on image 231. There is also focal fusiform aneurysmal dilatation within the distal right cervical internal carotid artery on image 266 measuring 6.5 mm. There is a 2 mm focal saccular aneury sm within the mid to distal right cervical vertebral artery on image 223. No acute fractures within t he cervical spine. IMPRESSION: 1. No acute intracranial abnormality. 2. No significant stenosis, occlusion, or aneurysm within the [place]. 3. No significant stenosis, occlusion, or dissection identified within the carotid or vertebral arter ies. 3. Small aneurysms seen within the right cervical internal carotid artery and right vertebral artery as described above. ACT 112: Negative or not required by law. Electronically signed by: Noe Baron M.D. 09/06/2022 7:20 PM
--- NOTE | 2022-09-06 19:21 | CT Scan Report ---
NONCONTRAST HEAD CT, HEAD & NECK CTA HISTORY: posterior headache, neck pain, HTN TECHNIQUE: Multiaxial CT images of the head were performed both before and after the intravenous admi nistration of contrast to evaluate the major cerebral vessels. Multiaxial CT images of the neck were also performed following the intravenous administration of contrast to evaluate the major cervical ve ssels. Maximum intensity projection images were also obtained. A dose lowering technique was utilized adhering to the principles of ALARA. COMPARISON: None. FINDINGS: NONCONTRAST HEAD CT: There is no mass, hematoma, midline shift, or acute infarct. HEAD CTA: Visualized intracranial internal carotid arteries, distal vertebral arteries, and basilar a rtery are widely patent. There is no significant stenosis, occlusion, or aneurysm seen within the renny ateral ACAs, MCAs, or stockroom worker. The major dural venous sinuses are patent. NECK CTA: The aortic arch and proximal great vessels are widely patent. There is no significant sten osis, occlusion, or dissection identified within the bilateral common carotid, internal carotid, or v ertebral arteries. There is a 3 mm focal saccular aneurysm within the mid right cervical internal car otid artery on image 231. There is also focal fusiform aneurysmal dilatation within the distal right cervical internal carotid artery on image 266 measuring 6.5 mm. There is a 2 mm focal saccular aneury sm within the mid to distal right cervical vertebral artery on image 223. No acute fractures within t he cervical spine. IMPRESSION: 1. No acute intracranial abnormality. 2. No significant stenosis, occlusion, or aneurysm within the [place]. 3. No significant stenosis, occlusion, or dissection identified within the carotid or vertebral arter ies. 3. Small aneurysms seen within the right cervical internal carotid artery and right vertebral artery as described above. ACT 112: Negative or not required by law. Electronically signed by: Noe Baron M.D. 09/06/2022 7:20 PM
--- NOTE | 2022-09-06 19:21 | CT Scan Report ---
NONCONTRAST HEAD CT, HEAD & NECK CTA HISTORY: posterior headache, neck pain, HTN TECHNIQUE: Multiaxial CT images of the head were performed both before and after the intravenous admi nistration of contrast to evaluate the major cerebral vessels. Multiaxial CT images of the neck were also performed following the intravenous administration of contrast to evaluate the major cervical ve ssels. Maximum intensity projection images were also obtained. A dose lowering technique was utilized adhering to the principles of ALARA. COMPARISON: None. FINDINGS: NONCONTRAST HEAD CT: There is no mass, hematoma, midline shift, or acute infarct. HEAD CTA: Visualized intracranial internal carotid arteries, distal vertebral arteries, and basilar a rtery are widely patent. There is no significant stenosis, occlusion, or aneurysm seen within the renny ateral ACAs, MCAs, or publicity manager. The major dural venous sinuses are patent. NECK CTA: The aortic arch and proximal great vessels are widely patent. There is no significant sten osis, occlusion, or dissection identified within the bilateral common carotid, internal carotid, or v ertebral arteries. There is a 3 mm focal saccular aneurysm within the mid right cervical internal car otid artery on image 231. There is also focal fusiform aneurysmal dilatation within the distal right cervical internal carotid artery on image 266 measuring 6.5 mm. There is a 2 mm focal saccular aneury sm within the mid to distal right cervical vertebral artery on image 223. No acute fractures within t he cervical spine. IMPRESSION: 1. No acute intracranial abnormality. 2. No significant stenosis, occlusion, or aneurysm within the [place]. 3. No significant stenosis, occlusion, or dissection identified within the carotid or vertebral arter ies. 3. Small aneurysms seen within the right cervical internal carotid artery and right vertebral artery as described above. ACT 112: Negative or not required by law. Electronically signed by: Noe Baron M.D. 09/06/2022 7:20 PM
[2022-09-06] MEDS ORDERED: MAGNESIUM SULFATE / D5W 1 GM/100 ML BAG IV STA (20:21)
[2022-09-06] MEDS ORDERED: METOCLOPRAMIDE HCL INJ 5 MG/ML 2 ML VIAL IV STA (20:21)
[2022-09-06] MEDS ORDERED: diazePAM 2 MG TABLET PO ONE (20:22)
[2022-09-06] MEDS ORDERED: LABETALOL HCL IV 5 MG/ML 20ML IV STA ×2 (22:10→22:55)
[2022-09-06] MEDS ORDERED: lisinopril 5 MG TAB PO STA (23:21)
[2022-09-07] MEDS ORDERED: MULTI-VITAMIN INFUSION 10 ML, THIAMINE HCL 100 MG, FOLIC ACID 1 MG in SODIUM CHLORIDE 0... IV ONE (00:11)
--- NOTE | 2022-09-07 00:14 | History & Physical Report ---
Date of Service September 07, 2022 Assessment & Plan (1) Hypertensive crisis: Plan: Multifactorial : Medication noncompliance Rule out sleep disordered breathing Carotid and vertebral artery aneurysms on CT imaging mood disorder, stable off maintenance medications episodic alcohol abuse, currently without signs of alcohol withdrawal ongoing tobacco abuse OBS PCU Resume home lisinopril Outpatient sleep study Outpatient vascular surgery evaluation for peripheral vascular disease DT precautions, initiate RAMYA S if with signs of alcohol withdrawal Nicotine patch as needed DVT prophylaxis. Lovenox subcu Full code Text document was generated using [employer] voice recognition software. It may contain grammatical or spelling errors. Kindly contact undersigned for clarification of any documentation item in question. History of Present Illness Chief Complaint: Headache Primary Care Provider: Adán Mcguire DO History obtained from patient and records. Medical history significant for hypertension, mood disorder, episodic alcohol abuse, ongoing tobacco abuse. Last confinement 2016 under gynecology service for abnormal uterine bleeding secondary to symptomatic fibroid uterus status post robotic assisted CAIT and bilateral salpingectomy. Patient stopped taking home lisinopril for HTN a few months ago because she felt that she did not need it. 3 days ago, patient noted achy posterior headache and neck pain which he attributed to a bad sleeping position. No improvement with ibuprofen. Some nausea, no vomiting. No chest pain, no shortness of breath. Snoring symptoms as per for some time now. No prior sleep studies. Last EtOH intake was 2 days ago. SBP 180s upon arrival at the ER, Labetalol administered at the ER. 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 Allergies Allergy/AdvReac Type Severity Reaction Status Date / Time No Known Allergies Allergy Verified 09/06/22 22:57 Home Medications Medication Instructions Recorded Confirmed Type No Known Home Medications 09/06/22 09/06/22 History Past Med/Surg History Medical History Anxiety Hypertension Surgical History History of anesthesia reaction SLOW TO WAKE UP WITH HYSTERECTOMY History of hysterectomy [place] teeth removed Family History Grandfather (Maternal) Family history of diabetes mellitus Social History Smoking Status: Current every day smoker Second Hand Exposure: No; Hx Alcohol Use: Yes Alcohol type: beer Preferred Language: Divehi Car Builder Required: No Beliefs That Will Affect Care: None Current Living Situation: Family Feels Safe at Home: Yes Assistive Devices: Glasses Review of Systems Review of Systems: As per HPI, all other systems reviewed and negative Physical Exam Physical Exam: GENERAL: Comfortable, obese, pleasant, no respiratory distress SKIN: Normal color, warm HEENT: Biggers palpebral conjunctivae, no ptosis, dry buccal mucosa NECK : Supple, short neck, no tenderness CHEST : CTA, no tenderness HEART : RRR, no obvious murmurs ABDOMEN: Some distention, nontender EXTREMITIES : No LE swelling/tenderness, no other conspicuous deformities noted NEUROLOGIC : Coherent, no facial asymmetry, no other gross focality Results & Data Results & Data ([facility]) Vital Signs (Past 12 Hours) Vital Signs Temp Pulse Pulse Resp BP BP Pulse Ox 09/06/22 23:15 68 18 139/93 96 09/06/22 23:00 67 18 169/112 H 95 09/06/22 22:50 75 18 177/109 H 95 09/06/22 22:00 66 18 185/108 H 95 09/06/22 21:00 89 18 180/91 H 94 09/06/22 19:00 97 09/06/22 19:00 80 18 164/97 H 97 09/06/22 16:06 36.3 C L 87 20 189/122 H 99 O2 Del Method 09/06/22 23:15 Room Air 09/06/22 23:00 Room Air 09/06/22 22:50 Room Air 09/06/22 22:00 Room Air 09/06/22 21:00 Room Air 09/06/22 19:00 Room Air 09/06/22 19:00 Room Air 09/06/22 16:06 Room Air Laboratory Results Laboratory Results WBC 7.75 K/ul (4.8-10.8) 09/06/22 16:53 RBC 4.90 M/uL (3.93-5.22) 09/06/22 16:53 Hgb 16.5 g/dl (12.0-16.0) H 09/06/22 16:53 Hct 46.6 % (34.1-44.9) H 09/06/22 16:53 MCV 95.1 fL (80.0-100.0) 09/06/22 16:53 MCH 33.7 pg (25.0-34.0) 09/06/22 16:53 MCHC 35.4 g/dL (32.0-36.0) 09/06/22 16:53 RDW Std Deviation 40.6 fL (36.4-46.3) 09/06/22 16:53 RDW Coeff of Jayson 11.7 % (11.5-14.5) 09/06/22 16:53 Plt Count 260 K/uL (130-400) 09/06/22 16:53 MPV 9.6 fL (9.4-12.3) 09/06/22 16:53 Immature Gran % (Auto) 0.3 % 09/06/22 16:53 Neut % (Auto) 72.1 % 09/06/22 16:53 Lymph % (Auto) 20.9 % 09/06/22 16:53 [place] % (Auto) 5.5 % 09/06/22 16:53 Eos % (Auto) 0.8 % 09/06/22 16:53 Baso % (Auto) 0.4 % 09/06/22 16:53 Neut # (Auto) 5.59 K/uL (1.4-6.5) 09/06/22 16:53 Lymph # (Auto) 1.62 K/uL (1.2-3.4) 09/06/22 16:53 [place] # (Auto) 0.43 K/uL (0.24-0.82) 09/06/22 16:53 Eos # (Auto) 0.06 K/uL (0-0.50) 09/06/22 16:53 Baso # (Auto) 0.03 K/uL (0-0.2) 09/06/22 16:53 Immature Gran # (Auto) 0.02 K/uL (0.00-0.02) 09/06/22 16:53 Sodium 139 mmol/L (136-145) 09/06/22 16:53 Potassium 3.9 mmol/L (3.5-5.1) 09/06/22 16:53 Chloride 107 mmol/L (98-107) 09/06/22 16:53 Carbon Dioxide 25 mmol/L (21-32) 09/06/22 16:53 Anion Gap 7 (3-11) 09/06/22 16:53 BUN 10 mg/dl (6-23) 09/06/22 16:53 Creatinine 0.52 mg/dl (0.6-1.2) L 09/06/22 16:53 Est Cr Clr Drug Dosing 128.9 ml/min 09/06/22 16:53 Est GFR ( Amer) 126.4 ml/min 09/06/22 16:53 Est GFR (Non-Af Amer) 109.1 ml/min 09/06/22 16:53 BUN/Creatinine Ratio 19.2 (10-20) 09/06/22 16:53 Glucose 93 mg/dl (70-99(Fasting)) 09/06/22 16:53 Calcium 9.4 mg/dl (8.5-10.1) 09/06/22 16:53 Phosphorus 3.3 mg/dl (2.5-4.9) 09/06/22 16:53 Magnesium 2.2 mg/dl (1.7-2.4) 09/06/22 16:53 Total Bilirubin 0.5 mg/dl (0.2-1.0) 09/06/22 16:53 AST 31 U/L (13-39) 09/06/22 16:53 ALT 26 U/L (7-52) 09/06/22 16:53 Alkaline Phosphatase 64 U/L (34-104) 09/06/22 16:53 Troponin I High Sens 3.8 pg/ml (0-14) 09/06/22 16:53 Total Protein 7.3 gm/dl (6.0-8.3) 09/06/22 16:53 Albumin 4.5 gm/dl (3.4-5.0) 09/06/22 16:53 Globulin 2.8 gm/dl (2.5-4.0) 09/06/22 16:53 Albumin/Globulin Ratio 1.6 (0.9-2) 09/06/22 16:53 Lipase 8 U/L (11-82) L 09/06/22 16:53 SARS-CoV-2 (PCR) NEGATIVE (Negative) 09/06/22 16:57 Influenza Type A (PCR) Negative (Neg) 09/06/22 16:57 Influenza Type B (PCR) Negative (Neg) 09/06/22 16:57 RSV (RT-PCR) Negative (Neg) 09/06/22 16:57 Impressions Chest X-Ray 09/06/22 16:23 XR chest 1V portable CLINICAL HISTORY: Chest pain, nonspecific TECHNIQUE: Single frontal radiograph of the chest was obtained. Comparison: None available at the time of this dictation. FINDINGS: No lines and tubes are seen. The cardiomediastinal silhouette is normal. The lungs are clear. No evidence of pleural effusion or pneumothorax. IMPRESSION: No acute chest disease. ACT 112: Negative or not required by law. Electronically signed by: Ck Cole M.D. 09/06/2022 5:[address] 09/06/22 16:[address], HEAD & NECK CTA HISTORY: posterior headache, neck pain, HTN TECHNIQUE: Multiaxial CT images of the head were performed both before and after the intravenous administration of contrast to evaluate the major cerebral vessels. Multiaxial CT images of the neck were also performed following the intravenous administration of contrast to evaluate the major cervical vessels. Maximum intensity projection images were also obtained. A dose lowering technique was utilized adhering to the principles of ALARA. COMPARISON: None. FINDINGS: NONCONTRAST HEAD CT: There is no mass, hematoma, midline shift, or acute infarct. HEAD CTA: Visualized intracranial internal carotid arteries, distal vertebral arteries, and basilar artery are widely patent. There is no significant stenosis, occlusion, or aneurysm seen within the bilateral ACAs, MCAs, or senior security engineer. The major dural venous sinuses are patent. NECK CTA: The aortic arch and proximal great vessels are widely patent. There is no significant stenosis, occlusion, or dissection identified within the bilateral common carotid, internal carotid, or vertebral arteries. There is a 3 mm focal saccular aneurysm within the mid right cervical internal carotid artery on image 231. There is also focal fusiform aneurysmal dilatation within the distal right cervical internal carotid artery on image 266 measuring 6.5 mm. There is a 2 mm focal saccular aneurysm within the mid to distal right cervical vertebral artery on image 223. No acute fractures within the cervical spine. IMPRESSION: 1. No acute intracranial abnormality. 2. No significant stenosis, occlusion, or aneurysm within the [place]. 3. No significant stenosis, occlusion, or dissection identified within the carotid or vertebral arteries. 3. Small aneurysms seen within the right cervical internal carotid artery and right vertebral artery as described above. ACT 112: Negative or not required by law. Electronically signed by: Noe Baron M.D. 09/06/2022 7:20 PM Head CTA 09/06/22 16:[address], HEAD & NECK CTA HISTORY: posterior headache, neck pain, HTN TECHNIQUE: Multiaxial CT images of the head were performed both before and after the intravenous administration of contrast to evaluate the major cerebral vessels. Multiaxial CT images of the neck were also performed following the intravenous administration of contrast to evaluate the major cervical vessels. Maximum intensity projection images were also obtained. A dose lowering technique was utilized adhering to the principles of ALARA. COMPARISON: None. FINDINGS: NONCONTRAST HEAD CT: There is no mass, hematoma, midline shift, or acute infarct. HEAD CTA: Visualized intracranial internal carotid arteries, distal vertebral arteries, and basilar artery are widely patent. There is no significant stenosis, occlusion, or aneurysm seen within the bilateral ACAs, MCAs, or senior security engineer. The major dural venous sinuses are patent. NECK CTA: The aortic arch and proximal great vessels are widely patent. There is no significant stenosis, occlusion, or dissection identified within the bilateral common carotid, internal carotid, or vertebral arteries. There is a 3 mm focal saccular aneurysm within the mid right cervical internal carotid artery on image 231. There is also focal fusiform aneurysmal dilatation within the distal right cervical internal carotid artery on image 266 measuring 6.5 mm. There is a 2 mm focal saccular aneurysm within the mid to distal right cervical vertebral artery on image 223. No acute fractures within the cervical spine. IMPRESSION: 1. No acute intracranial abnormality. 2. No significant stenosis, occlusion, or aneurysm within the [place]. 3. No significant stenosis, occlusion, or dissection identified within the carotid or vertebral arteries. 3. Small aneurysms seen within the right cervical internal carotid artery and right vertebral artery as described above. ACT 112: Negative or not required by law. Electronically signed by: Noe Baron M.D. 09/06/2022 7:20 PM Neck CTA 09/06/22 16:[address], HEAD & NECK CTA HISTORY: posterior headache, neck pain, HTN TECHNIQUE: Multiaxial CT images of the head were performed both before and after the intravenous administration of contrast to evaluate the major cerebral vessels. Multiaxial CT images of the neck were also performed following the intravenous administration of contrast to evaluate the major cervical vessels. Maximum intensity projection images were also obtained. A dose lowering technique was utilized adhering to the principles of ALARA. COMPARISON: None. FINDINGS: NONCONTRAST HEAD CT: There is no mass, hematoma, midline shift, or acute infarct. HEAD CTA: Visualized intracranial internal carotid arteries, distal vertebral arteries, and basilar artery are widely patent. There is no significant stenosis, occlusion, or aneurysm seen within the bilateral ACAs, MCAs, or senior security engineer. The major dural venous sinuses are patent. NECK CTA: The aortic arch and proximal great vessels are widely patent. There is no significant stenosis, occlusion, or dissection identified within the bilateral common carotid, internal carotid, or vertebral arteries. There is a 3 mm focal saccular aneurysm within the mid right cervical internal carotid artery on image 231. There is also focal fusiform aneurysmal dilatation within the distal right cervical internal carotid artery on image 266 measuring 6.5 mm. There is a 2 mm focal saccular aneurysm within the mid to distal right cervical vertebral artery on image 223. No acute fractures within the cervical spine. IMPRESSION: 1. No acute intracranial abnormality. 2. No significant stenosis, occlusion, or aneurysm within the [place]. 3. No significant stenosis, occlusion, or dissection identified within the carotid or vertebral arteries. 3. Small aneurysms seen within the right cervical internal carotid artery and right vertebral artery as described above. ACT 112: Negative or not required by law. Electronically signed by: Noe Baron M.D. 09/06/2022 7:20 PM Diagnostic Findings EKG as per my interpretation : Rate 80, NSR, LAD, LAFB, incomplete RBBB, no ischemia
[2022-09-07] MEDS ORDERED: PROMETHAZINE HCL 12.5 MG in SODIUM CHLORIDE 0.9% 50 ML IV PRN (00:18)
[2022-09-07] MEDS: LORazepam 0.5 MG TAB PO PRN ×2 (00:54→21:49)
[2022-09-07 06:08] LABS: Basophils # (auto) 0.01 K/uL (0-0.2); Basophils % (auto) 0.1 %; Eosinophils # (auto) 0.01 K/uL (0-0.50); Eosinophils % (auto) 0.1 %; Hematocrit (blood only) 43.6 % (34.1-44.9); Hemoglobin 15.4 g/dl (12.0-16.0); Immature Granulocytes # (auto) 0.02 K/uL (0.00-0.02); Immature Granulocytes % (auto) 0.3 %; Lymphocytes # (auto) 1.11 K/uL (1.2-3.4); Lymphocytes % (auto) 14.2 %; Mean Corpuscular Hemoglobin 33.1 pg (25.0-34.0); Mean Corpuscular Hgb Conc 35.3 g/dL (32.0-36.0); Mean Corpuscular Volume 93.8 fL (80.0-100.0); Mean Platelet Volume 9.3 fL (9.4-12.3); Monocytes # (auto) 0.27 K/uL (0.24-0.82); Monocytes % (auto) 3.4 %; Neutrophils # (auto) 6.41 K/uL (1.4-6.5); Neutrophils % (auto) 81.9 %; Platelet Count 259 K/uL (130-400); RDW Coefficient of Variation 11.6 % (11.5-14.5); RDW Standard Deviation 39.9 fL (36.4-46.3); Red Blood Count 4.65 M/uL (3.93-5.22); White Blood Count 7.83 K/ul (4.8-10.8)
[2022-09-07 07:08] LABS: BUN Creatinine Ratio 17.6 (10-20); Calcium 9.2 mg/dl (8.5-10.1); Creatinine Clr Calc Pharmacy 131.5 ml/min; Est GFR (African American) 127.2 ml/min; Est GFR (Non-African American) 109.8 ml/min; Potassium 3.9 mmol/L (3.5-5.1)
[2022-09-07] MEDS: ACETAMINOPHEN 325 MG TAB PO PRN ×4 (07:53→21:49)
[2022-09-07] MEDS ORDERED: ENOXAPARIN INJ 40 MG/0.4 ML SYR SQ SCH ×2 (09:00)
[2022-09-07] MEDS: MULTIVITAMIN TAB PO SCH (10:11)
--- NOTE | 2022-09-07 19:59 | Communication Note ---
Date of Service: September 07, 2022 Attending Addendum: patient seen and examined, records reviewed by myself as well on exam, patient seen resting in bed, in good spirits states she feels much better neck pain now mild, Tylenol helping no chest pain, dyspnea, palpitations, dizziness no tremors, anxiety, headache, nausea no other symptoms VS noted and reviewed oriented x 3 , not in distress, speaks in sentences with no effort nor accessory muscle use normal rate, regular rhythm, no murmurs clear breath sounds bilaterally non distended, soft, nontender no bipedal edema, erythema, warmth no neuro deficits all labs and imaging noted ASSESSMENT AND PLAN UNCONTROLLED HTN improving continue Lisinopril 5mg HS NECK PAIN likely Muscular PRN Tylenol declines other medications, interventions ANEURYSMS, ICA, RVA Small aneurysms seen within the right cervical internal carotid artery and right vertebral artery as described above. ff up with Vascular surgery other diagnoses and plan of care as per Dr. Lawrence's notes Ricardo Cardenas MD
[2022-09-07] MEDS ORDERED: lisinopril 5 MG TAB PO SCH (21:00)
[2022-09-08] MEDS: oxyCODONE HCL IR 5 MG TAB (IMMEDIATE RELEASE) PO PRN ×3 (00:03→10:25)
[2022-09-08] MEDS: ACETAMINOPHEN 325 MG TAB PO PRN ×3 (02:13→12:39)
--- NOTE | 2022-09-08 06:49 | Electrocardiogram Report ---
Test Reason : Blood Pressure : / mmHG Vent. Rate : 079 BPM Atrial Rate : 079 BPM P-R Int : 126 ms QRS Dur : 100 ms QT Int : 434 ms P-R-T Axes : 046 -03 058 degrees QTc Int : 497 ms Poor data quality, interpretation may be adversely affected Normal sinus rhythm Possible Left atrial enlargement Incomplete right bundle branch block Prolonged QT Abnormal ECG No previous ECGs available Confirmed by Bull Delatorre ([id number]) on 09/08/2022 6:48:54 AM Referred By: REFERRED SELF Confirmed By:Bull Delatorre
[2022-09-08] MEDS: MULTIVITAMIN TAB PO SCH (08:11)
[2022-09-08] MEDS ORDERED: FOLIC ACID 1 MG TAB PO SCH (09:00)
[2022-09-08] MEDS ORDERED: THIAMINE HCL 100 MG TAB PO SCH (09:00)
--- NOTE | 2022-09-08 12:37 | Discharge Summary ---
Discharge Summary Date of Service September 08, 2022 Notes For Next Care Provider Assess resolution of symptoms Follow up with vascular surgery outpatient for evaluation and management of aneurysms Medication Changes From Visit Started on lisinopril 5mg HS for hypertension Tylenol prn for headache Cyclobenzaprine prn for muscle spasms Admission HPI Per Admitting Provider History obtained from patient and records. Medical history significant for hypertension, mood disorder, episodic alcohol abuse, ongoing tobacco abuse. Last confinement 2016 under gynecology service for abnormal uterine bleeding secondary to symptomatic fibroid uterus status post robotic assisted CAIT and bilateral salpingectomy. Patient stopped taking home lisinopril for HTN a few months ago because she felt that she did not need it. 3 days ago, patient noted achy posterior headache and neck pain which he attributed to a bad sleeping position. No improvement with ibuprofen. Some nausea, no vomiting. No chest pain, no shortness of breath. Snoring symptoms as per for some time now. No prior sleep studies. Last EtOH intake was 2 days ago. SBP 180s upon arrival at the ER, Labetalol administered at the ER. 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 Admission Exam Per Admitting Provider GENERAL: Comfortable, obese, pleasant, no respiratory distress SKIN: Normal color, warm HEENT: [place] palpebral conjunctivae, no ptosis, dry buccal mucosa NECK : Supple, short neck, no tenderness CHEST : CTA, no tenderness HEART : RRR, no obvious murmurs ABDOMEN: Some distention, nontender EXTREMITIES : No LE swelling/tenderness, no other conspicuous deformities noted NEUROLOGIC : Coherent, no facial asymmetry, no other gross focality Principal Dx & Hospital Course #1 = Principal Diagnosis (1) Poorly-controlled hypertension: (2) Right internal carotid artery aneurysm: (3) Aneurysm of right vertebral artery: Plan Patient reported she was on antihypertensive but stopped it sometime ago Presented with neck pain, occipital headache Neck pain was reproducible on exam CTA head and neck noted no acute intracranial abnormalities, no significant stenosis but there were small aneurysms seen within right cervical internal carotid artery and right vertebral artery. Patient's blood pressure was 189/122 on admission She was started on lisinopril 5mg HS Blood pressure is improved today at 126/85 Reports headache/neck pain still present but significantly improved Counseled patient extnesively on need for medication compliance Advised to follow up with vascular and PCP outpatient PCP to consider outpatient sleep study. Discharge Exam Constitutional + well hydrated; no acute distress Eyes PERRL, conjunctivae normal, anicteric sclerae ENMT external ear and nose normal, oropharynx normal Neck Tenderness on palpation of muscles of posterior neck Respiratory normal respiratory effort, lungs clear to auscultation Cardiovascular Rate/Rhythm: regular rate and regular rhythm S1 s2 Gastrointestinal (Abdomen) normal bowel sounds, soft, nontender, no hepatosplenomegaly Musculoskeletal no cyanosis or clubbing, extremities motor strength 5/5 Neurologic PERRL, EOMI, accommodation nl, no face palsy, no dysarthria Psychiatric A+Ox3, euthymic affect Updated Medication List Medication Instructions Recorded Confirmed Type acetaminophen 325 mg tablet 975 mg PO Q8H PRN pain #60 tabs 09/08/22 Rx cyclobenzaprine 5 mg tablet 10 mg PO HS PRN muscle spasm #14 09/08/22 Rx tabs lidocaine 5 % topical patch 1 patch topical DAILY #7 ea 09/08/22 Rx lisinopril 5 mg tablet (Zestril) 5 mg PO HS 30 days #30 tabs 09/08/22 Rx Hospital Stay Data Consultations 09/06/22 22:46 ED Decision to Admit Stat Diagnostic Imagining Performed 09/06/22 16:23 CT angio head w con Stat CT angio neck with con Stat CT head/brain wo con Stat NONCONTRAST HEAD CT: There is no mass, hematoma, midline shift, or acute infarct. HEAD CTA: Visualized intracranial internal carotid arteries, distal vertebral arteries, and basilar artery are widely patent. 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 The major dural venous sinuses are patent. NECK CTA: The aortic arch and proximal great vessels are widely patent. There is no significant stenosis, occlusion, or dissection identified within the bilateral common carotid, internal carotid, or vertebral arteries. There is a 3 mm focal saccular aneurysm within the mid right cervical internal carotid artery on image 231. There is also focal fusiform aneurysmal dilatation within the d istal right cervical internal carotid artery on image 266 measuring 6.5 mm. There is a 2 mm focal saccular aneurysm within the mid to distal right cervical vertebral artery on image 223. No acute fractures within the cervical spine. IMPRESSION: 1. No acute intracranial abnormality. 2. No significant stenosis, occlusion, or aneurysm within the [place]. 3. No significant stenosis, occlusion, or dissection identified within the carotid or vertebral arteries. 3. Small aneurysms seen within the right cervical internal carotid artery and right vertebral artery as described above. Pending Results Patient Have Any Pending Studies at Discharge: No Discharge Instructions Given to Patient (Per Discharging Provider) Mrs Cobb You came to the hospital complaining of headache and neck pain. Your blood pressure was markedly elevated. You were evaluated and CT scans showed you have small aneurysms in the right internal carotid and right vertebral arteries. You were started on blood pressure medication and your blood pressure is better controlled. Please use tylenol as needed for the headache, flexeril as needed for the neck pain. Please ensure follow up with your Primary Doctor and Vascular surgery outpatient. It was a pleasure taking care of you. Total Time Total Time Spent Total Time Spent (In Minutes): 45 Total Time Includes: Examination of the Patient, Discharge Planning and Medication Reconciliation
== END 2022-09-08 14:50 | disposition home or self-care (01) ==
LOC: EDINP 16:00 → ED 16:00 → 2S 09-07 00:50 → SUATTDRO 09-07 19:55